=== PATIENT | male | born 1995 | race American Indian/Alaskan Native ===

== ENCOUNTER 2021-02-06 11:54 | Emergency (ER) | payer OTHER ==
--- NOTE | 2021-02-06 12:59 | Emergency Department Report ---
Stated Complaint: PENILE DISCHARGE Time Seen by Provider: 02/06/21 12:54 - HPI History of Present Illness: The patient was evaluated in the emergency department for symptoms described in the history of present illness. He/she was evaluated in the context of the global COVID-19 pandemic, which necessitated consideration that the patient might be at risk for infection with the virus that causes COVID-19. Institutional protocols and algorithms that pertain to the evaluation of patients at risk for COVID-19 are in a state of rapid change based on information released by regulatory bodies including the CDC and federal and state organizations. These policies and algorithms were followed during the patient's care in the emergency department. Please note that these policies, procedures and recommendations changed on a rapid basis. 25-year-old -Fil[place]ino male presents to the emergency room complaining of penile discharge for couple days. Patient denies any testicular pain no testicular swelling. Patient does admit to unprotected intercourse. He denies any fever chills no nausea no vomiting no abdominal pain or pelvic pain. - Exam Physical Exam: General: Awake, appropriately interactive, no acute distress. Neck: Supple. Full range of motion intact. Cardiovascular: Normal peripheral perfusion. Pulmonary: No respiratory distress. Patient is speaking normally without use of accessory muscles. Skin: No apparent rashes or lesions. Neurological: No facial asymmetry. Speech is clear. Follows commands. Patient is alert and oriented. Musculoskeletal: Full range of motion, no crepitus. . Able to bear weight and ambulate without difficulty. Distal neurovascular and motor/sensory function is intact. Psych: Cooperative. Appropriate mood and affect. MSE screening note: Focused history and physical exam performed. Due to findings the following was ordered: 25-year-old -Fil[place] male presents to the emergency room complaining of penile discharge for couple days. Patient denies any testicular pain no testicular swelling. Patient does admit to unprotected intercourse. He denies any fever chills no nausea no vomiting no abdominal pain or pelvic pain. Discussed with patient he can follow-up at the health department for full STD evaluation and treatment. Discussed with patient to refrain from intercourse until he is tested and treated. ED Disposition for MSE Disposition: HOME / SELF CARE / HOMELESS Is pt being admited?: No Condition: Stable Instructions: Safe Sex Additional Instructions: Refrain from intercourse until you are tested and treated for STDs that includes HIV syphilis herpes hepatitis gonorrhea chlamydia and trichomonas. It is very important that you follow-up at the health department urgent care clinic or community clinic for testing. Referrals: [facility] [Outside] - 3-5 Days [facility] [Outside] - 3-5 Days [facility] [Outside] - 3-5 Days [facility] [Other] - 3-5 Days
[2021-02-06 13:00] VITALS: BP 129/70
== END 2021-02-06 13:12 | disposition home or self-care (01) ==
LOC: ED 11:54
DX: R36.9 Urethral discharge, unspecified (principal)
CPT/HCPCS: 99281